=== PATIENT | male | born 1960 | race Caucasian/White ===

== ENCOUNTER → 2017-01-01 | Outpatient (CLI) | payer BC ==
[~2017-01-01] MED LIST: GADAVIST IV PRN
--- NOTE | 2017-01-01 17:19 | DIAGNOSTIC IMAGING REPORT ---
PROSTATE MRI COMBO CLINICAL HISTORY: Elevated PSA. PSA 5.730 ng/mL. TECHNIQUE: Multisequence, multiplanar MR imaging of the prostate was performed before and after the intravenous administration of 8 cc of Gadavist. Additional postprocessing was performed on a separate [employer] workstation by the radiologist for 3-D volumetric segmentation of the prostate and contouring of region(s) of interest (JIMMY) for targeting. COMPARISON: CT of the abdomen and pelvis July 10, 2015. FINDINGS: Prostate: The prostate measures 5.9 x 4.9 x 4.7 cm (ProformativeaCAD prostate boundary segmentation volume 67.08 mL). Note is made of moderate to marked benign prostatic hyperplasia. Precontrast T1 weighted imaging demonstrates no significant abnormality. Seminal vesicles normal. Suspicious lesion(s) described below: Note is made of a 7 mm round T2 hypointense focus within the left lateral peripheral zone within the mid gland which demonstrates restricted diffusion. The lesion also demonstrates early enhancement. No additional abnormalities are within the peripheral zone are present. No significant abnormalities within the transitional zone are noted other than BPH. Bladder: Normal. Bowel: Visualized portion of the rectum normal. Peritoneum: No free fluid in the pelvis. Lymph nodes: No lymphadenopathy in the visualized portion of the pelvis. Vasculature: Iliac vessels patent. Osseous structures: Normal bone marrow signal intensity. IMPRESSION: 1. 7 mm lesion within the left lateral mid peripheral zone which is suspicious for cancer. This is categorized as a PI-RADS 4 lesion: high (clinically significant cancer is likely to be present). This lesion has been segmented for targeted biopsy. 2. Benign prostatic hyperplasia. Electronically signed by: Riki Feilpe M.D. 01/01/2017 5:18 PM Dictated Date/Time: 01/01/2017 3:15 PM
== END | disposition home or self-care (01) ==
LOC: C.MRIBC 11:35
PROVIDERS: ATTEND Urology
DX: R97.20 Elevated prostate specific antigen [PSA] (principal); N42.9 Disorder of prostate, unspecified

== ENCOUNTER → 2017-02-24 | Outpatient (CLI) | payer BC | END | disposition home or self-care (01) | LOC: C.PATHSPEC 17:21 | PROVIDERS: ATTEND Urology | DX: R97.20 Elevated prostate specific antigen [PSA] (principal); N40.1 Benign prostatic hyperplasia with lower urinary tract symptoms ==